=== PATIENT | female | born 1980 | race Hispanic/Latino ===

== ENCOUNTER 2018-08-19 02:18 | Emergency (ER) | payer BC ==
[~2018-08-19] VITALS: Ht 149.9 cm; Wt 68.0 kg
--- OUTSIDE RECORDS SUMMARY | 2018-08-19 02:21 | XMS REPORT | Encounter Summary ---
Author Organization Unknown Address [address] [place] [address] Phone [phone] Reason for Visit Medical Complaint; uti x 1 week Instructions 1. Acute urinary tract infection Bactrim DS 800 mg-160 mg tablet phenazopyridine 200 mg tablet culture, urine urinalysis, dipstick ceftriaxone 500 mg solution for injection Discussion Note: None recorded. Patient educational handouts: No information available. Plan of Care Patient Instructions Increase fluid intake. Take med as prescribed.If started to have yeast infection while on antibiotic, may call clinic for diflucan. Wipe front to back and urinate after sexual intercouse.Wear loose cotton underwear. May take cranberry juice for preventative. If symptoms worsen follow with severe back pain, chills, fever, abdominal pain, seek ER. Reminders Provider Appointments None recorded. Lab Culture, Urine 05/12/2016 [facility] Urinalysis, Dipstick 05/12/2016 [facility] Referral None recorded. Procedures None recorded. Surgeries None recorded. Imaging None recorded. Medications Name Start Date Bactrim DS 800 mg-160 mg tablet Take 1 tablet every 12 hours by oral route as directed for 5 days. ceftriaxone 500 mg solution for injection EpiPen 2-Nadeem 0.3 mg/0.3 mL injection, auto-injector NuvaRing 0.12 mg -0.015 mg/24 hr vaginal U UTD phenazopyridine 200 mg tablet Take 1 tablet 3 times a day by oral route as needed for urinary pain for 2 days. Medications Administered Name Date ceftriaxone 500 mg solution for injection Take by injection route. [id number] Vitals Height Weight BMI Blood Pressure 4 ft 11 in 158 lbs 31.9 118/76 Lab Results Date Name Result Description Value Range Status Urinalysis, Dipstick Color : Mirta Clarity : Cloudy Leukocytes : Large Nitrites : Positive Urobilinogen : Normal Protein : Negative Ph : 6.5 Blood : Large Specific [place] : 1.010 Ketones : Negative Bilirubin : Negative Glucose Negative Allergies Name Reaction Severity Onset NKDA Problems Name Status Onset Date Source Acute Pharyngitis Active Encounter Acute Urinary Tract Infection Active Encounter Cellulitis of Breast Active Encounter Procedures Date Name Performed by Tubal Ligation Information not available Vaccine List Vaccine Type influenza, seasonal, injectable 05/13/2015 influenza, unspecified formulation 04/13/2012 Social History Smoking Status Never Smoker Past Encounters 05/12/2016 Acute Urinary Tract Infection Alicia Pop, GLASS CLEANER: [address] [place] [address], Ph. 04/20/2016 Cellulitis of Breast Gloria Kramer, GLASS CLEANER: [address] [facility], [place] [address], Ph. History of Present Illness Kgqwxx-XUZ-Ieustns Reported By: Patient HPI: Location: urethra. Quality: burning. Severity: worsening. Duration: started 7 days. Onset/Timing: worse. Context: no known exposure to STD, no prior history of STDs, sexually active. Modifying factors OTC medication. Associated Symptoms: no flank pain, no jaundice, no blood in the urine, no pain during urination, no vaginal discharge, no blisters on genitals, no rash on genitals, fever/chills, burning sensation during urination, urgency, urinary frequency Review of Systems Basic Reported By: Patient Constitutional: Constitutional: fever Eyes: Eyes: no eye complaints Fgvt-Lemq-Tqdiy-Throat: Ears: no ear complaints. Nose: no nose/sinus problems. Mouth/Throat: no sore throat, no bleeding gums, no mouth complaints, no teeth problems Cardiovascular: Cardiovascular: no chest pain, no shortness of breath, no known heart murmur Respiratory: Respiratory: no cough, no wheezing, no shortness of breath Gastrointestinal: Gastrointestinal: no abdominal pain, no vomiting / diarrhea Genitourinary: Genitourinary: no discharge, dysuria, urinary urgency Musculoskeletal: Musculoskeletal: no muscle aches, no muscle weakness, no arthralgias/joint pain, no back pain Skin: Skin: no abnormal / changing mole, no jaundice, no rashes Neurologic: Neurologic: no loss of consciousness, no weakness, no numbness, no seizures, no dizziness, no headaches Physical Exam Adult Basic, Adult Female Complete Constitutional: General Appearance: healthy-appearing, well-nourished, well-developed. Level of Distress: NAD. Ambulation: ambulating normally Psychiatric: Mental Status: active and alert. Orientation: to time, to place, to person Eyes: Lids and Conjunctivae: non-injected, no discharge, no pallor. Pupils: PERRLA. Corneas: grossly intact. EOM: EOMI. Lens: clear. Sclerae: non-icteric. Vision: acuity grossly intact Wlf-Kxal-Vmaqu-Throat: Ears: no lesions on external ear, no outer ear tenderness, EACs clear, TMs clear. Hearing: no hearing loss. Nose: no lesions on external nose, nares patent, no septal deviation, nasal passages clear, no sinus tenderness, no nasal discharge. Lips, Teeth, and Gums: no mouth or lip ulcers, no bleeding gums, normal dentition. Oropharynx: moist mucous membranes, no erythema, no exudates, tonsils not enlarged Neck: Neck: supple, trachea midline, no masses, FROM. Lymph Nodes: no cervical LAD, no supraclavicular LAD. Thyroid: no enlargement, non-tender, no nodules Lungs: Respiratory effort: no dyspnea, no tachypnea, no use of accessory muscles, no intercostal retractions. Auscultation: breath sounds normal Cardiovascular: Heart Auscultation: RRR, no murmurs. Neck vessels: no carotid bruits Abdomen: Bowel Sounds: normal. Inspection and Palpation: soft, non-distended, no guarding, no rebound tenderness, no masses, no CVA tenderness, suprapubic tenderness. Liver: non-tender, no hepatomegaly. Spleen: non-tender, no splenomegaly. Hernia: none palpable
--- OUTSIDE RECORDS SUMMARY | 2018-08-19 02:21 | XMS REPORT | Continuity of Care Document ---
Author Author [facility] Interface Address Unknown Phone Unavailable Problems Problem Status Onset Date Classification Date Reported Comments Source Elevated blood pressure 07/31/2018 Diagnosis 07/31/2018 [facility] Body mass index 30+ - obesity 07/31/2018 Diagnosis 07/31/2018 [facility] Expiratory wheezing 07/31/2018 Diagnosis 07/31/2018 [facility] Cough 07/03/2018 Diagnosis 07/31/2018 [facility] Sore throat symptom 07/03/2018 Diagnosis 07/31/2018 [facility] Viral upper respiratory tract infection 07/03/2018 Diagnosis 07/31/2018 [facility] Fever 07/03/2018 Diagnosis 07/31/2018 [facility] Influenza due to Influenza A virus 08/03/2017 Diagnosis 08/04/2017 [facility] Wheezing 08/03/2017 Diagnosis 08/04/2017 [facility] Acute urinary tract infection 05/12/2016 Diagnosis 05/12/2016 [facility] Cellulitis of breast 04/20/2016 Diagnosis 05/12/2016 [facility] Acute Pharyngitis Problem 08/04/2017 [facility] Acute Urinary Tract Infection Problem 08/04/2017 [facility] Cellulitis of Breast Problem 08/04/2017 [facility] Medications Medication Details Route Status Patient Instructions Ordering Provider Order Date Source Brompheniramine Maleate 0.4 MG/ML / Dextromethorphan Hydrobromide 2 MG/ML / Pseudoephedrine Hydrochloride 6 MG/ML Oral Solution [Bromfed DM] Bromfed DM 2 mg-30 mg-10 mg/5 mL syrup Take 10 mL every 6 hours by oral route as needed for 6 days. Active [facility] [id number] 0.3 ML Epinephrine 1 MG/ML Auto-Injector [Epipen] EpiPen 2-Nadeem 0.3 mg/0.3 mL injection, auto-injector FOR EMERGENCY U ONLY Active [facility] 21 DAY Ethinyl Estradiol 0.855358 MG/HR / Etonogestrel 0.005 MG/HR Vaginal Ring [NuvaRing] NuvaRing 0.12 mg -0.015 mg/24 hr vaginal U UTD Active [facility] 200 ACTUAT Albuterol 0.09 MG/ACTUAT Metered Dose Inhaler [ProAir] ProAir HFA 90 mcg/actuation aerosol inhaler Inhale 2 puffs every 4-6 hours by inhalation route as needed. Active [facility] Sulfamethoxazole 800 MG / Trimethoprim 160 MG Oral Tablet [Bactrim] Bactrim DS 800 mg-160 mg tablet Take 1 tablet every 12 hours by oral route as directed for 5 days. Active [facility] Ceftriaxone 500 MG Injection ceftriaxone 500 mg solution for injection Active [facility] 0.3 ML Epinephrine 1 MG/ML Auto-Injector [Epipen] EpiPen 2-Nadeem 0.3 mg/0.3 mL injection, auto-injector Active [facility] Phenazopyridine hydrochloride 200 MG Oral Tablet phenazopyridine 200 mg tablet Take 1 tablet 3 times a day by oral route as needed for urinary pain for 2 days. Active [facility] Mupirocin 0.02 MG/MG Topical Ointment mupirocin 2 % topical ointment APPLY A SMALL AMOUNT TO THE AFFECTED AREA BY TOPICAL ROUTE 3 TIMES PER DAY Active [facility] benzonatate 100 MG Oral Capsule benzonatate 100 mg capsule Take 2 capsules 3 times a day by oral route as needed for 10 days. Active [facility] Medrol (Nadeem) 4 mg tablets in a dose pack Medrol (Nadeem) 4 mg tablets in a dose pack As directed Active [facility] benzonatate 200 MG Oral Capsule benzonatate 200 mg capsule Take 1 capsule 3 times a day by oral route for 7 days. Active [facility] Albuterol 0.09 MG/ACTUAT Metered Dose Inhaler ProAir HFA 90 mcg/actuation aerosol inhaler Inhale 2 puffs every 4-6 hours by inhalation route as needed. Active [facility] Allergies, Adverse Reactions, Alerts Substance Category Reaction Severity Reaction type Status Date Reported Comments Source Immunizations Immunization Date Given Site Status Last Updated Comments Source influenza, seasonal, injectable 05/14/2015 completed [facility] influenza, unspecified formulation 04/14/2012 completed [facility] Results Order Name Results Value Reference Range Date Interpretation Comments Source PEF 469 07/31/2018 [facility] Percent Predicted Value 43 % 07/31/2018 [facility] Influenza A negative 07/30/2018 [facility] Influenza B negative 07/30/2018 [facility] RESULT negative 07/30/2018 [facility] SWAB LOCATION Left and Right tonsillar pillars 07/30/2018 [facility] Influenza A negative 07/30/2018 [facility] Influenza B negative 07/30/2018 [facility] RESULT negative 07/03/2018 [facility] SWAB LOCATION Left and Right tonsillar pillars 07/03/2018 [facility] Influenza A negative 07/03/2018 [facility] Influenza B negative 07/03/2018 [facility] Influenza A positive 08/03/2017 [facility] Influenza B negative 08/03/2017 [facility] Urinalysis macro (dipstick) panel - Urine COLOR : Mirta 05/12/2016 [facility] Urinalysis macro (dipstick) panel - Urine CLARITY : Cloudy 05/12/2016 [facility] Urinalysis macro (dipstick) panel - Urine LEUKOCYTES : Large 05/12/2016 [facility] Urinalysis macro (dipstick) panel - Urine NITRITES : Positive 05/12/2016 [facility] Urinalysis macro (dipstick) panel - Urine UROBILINOGEN : Normal 05/12/2016 [facility] Urinalysis macro (dipstick) panel - Urine PROTEIN : Negative 05/12/2016 [facility] Urinalysis macro (dipstick) panel - Urine pH : 6.5 05/12/2016 [facility] Urinalysis macro (dipstick) panel - Urine BLOOD : Large 05/12/2016 [facility] Urinalysis macro (dipstick) panel - Urine SPECIFIC GRAVITY : 1.010 05/12/2016 [facility] Urinalysis macro (dipstick) panel - Urine KETONES : Negative 05/12/2016 [facility] Urinalysis macro (dipstick) panel - Urine BILIRUBIN : Negative 05/12/2016 [facility] Urinalysis macro (dipstick) panel - Urine GLUCOSE Negative 05/12/2016 [facility] Vital Signs Vital Sign Value Date Comments Source Diastolic (mm Hg) 80 07/30/2018 [facility] Height 59 07/30/2018 [facility] Systolic (mm Hg) 116 07/30/2018 [facility] Weight 157 07/30/2018 [facility] Diastolic (mm Hg) 80 07/03/2018 [facility] Height 59 07/03/2018 [facility] Systolic (mm Hg) 100 07/03/2018 [facility] Weight 157 07/03/2018 [facility] Diastolic (mm Hg) 80 08/03/2017 [facility] Height 59 08/03/2017 [facility] Systolic (mm Hg) 112 08/03/2017 [facility] Weight 157 08/03/2017 [facility] Diastolic (mm Hg) 76 05/12/2016 [facility] Height 59 05/12/2016 [facility] Systolic (mm Hg) 118 05/12/2016 [facility] Weight 158 05/12/2016 [facility] Diastolic (mm Hg) 70 04/20/2016 [facility] Height 59 04/20/2016 [facility] Systolic (mm Hg) 120 04/20/2016 [facility] Weight 158 04/20/2016 [facility] Encounters Location Location Details Encounter Type Encounter Number Reason For Visit Attending Provider ADM Date DC Date Status Source [place] - [facility] - [id number]_[id number] Kramer, ROLLOFF DRIVER: [address] [place] [address], Ph. [id number] Gloria Kramer 04/20/2016 [facility] [place] [facility] - [id number]_[id number] Kramer, ROLLOFF DRIVER: [address] [place] [address], Ph. [id number] Gloria Kramer 04/20/2016 [facility] [place] [facility] - [id number] Kramer, ROLLOFF DRIVER: [address] [place] [address], Ph. [id number] Gloria Kramer 04/20/2016 [facility] [place] [facility] - [id number] Alicia Pop, ROLLOFF DRIVER: [address] [place] [address], Ph. [id number] Alicia Pop 05/12/2016 [facility] [place] - [facility] - [id number] Alicia Pop, ROLLOFF DRIVER: [address], [place] [address], Ph. [id number] Alicia Pop 05/12/2016 [facility] [place] - [facility] - [id number] Luisa Gautamroy, ROLLOFF DRIVER-C: [address], [place] [address], Ph. [id number] Luisa García 08/03/2017 [facility] [place] [facility] - [id number] Cecil Tom, PA-C: [address], [place] [address], Ph. [id number] Cecil Tom 07/03/2018 [facility] [place] [facility] - [id number] Cecil Tom PA-C: [address], [place] [address], Ph. [id number] Cecil Tom 07/03/2018 [facility] [place] [facility] - [id number]_Dyshwibx Jonh Vasquez, ROLLOFF DRIVER-C: [address], [place] [address], Ph. [id number] Jonh Rmsashi 07/30/2018 [facility] Procedures Procedure Code Date Perfomer Comments Source Tubal Ligation [facility]
--- OUTSIDE RECORDS SUMMARY | 2018-08-19 02:21 | XMS REPORT | Encounter Summary ---
Author Organization Unknown Address [address] [place] [address] Phone [phone] Reason for Visit Medical Complaint Instructions 1. Cellulitis of breast cellulitis: care instructions Bactrim DS 800 mg-160 mg tablet mupirocin 2 % topical ointment Discussion Note: None recorded. Plan of Care Patient Instructions Please take tylenol or ibuprofen every 6 hours as needed for pain. Please go to PCP/UC/ER if you have signs that your infection is getting worse, such as: Increased pain, swelling, warmth, or redness: Red streaks leading from the area: Pus draining from the area: fever or rash spreading to the other parts of your body. Watch closely for changes in your health, and be sure to contact your doctor or go toUC/ERif: you are not getting better after 1 day (24 hours). Please read all the side effects of the medications, if you develop any side effects immediately stop the medication and please contact your PCP/UC/ER or [facility] or call 911.Patient verbalizes understanding and agrees to the plan. Reminders Provider Appointments None recorded. Lab None recorded. Referral None recorded. Procedures None recorded. Surgeries None recorded. Imaging None recorded. Medications Name Start Date Bactrim DS 800 mg-160 mg tablet Take 1 tablet every 12 hours by oral route with meals for 10 days. EpiPen 2-Nadeem 0.3 mg/0.3 mL injection, auto-injector mupirocin 2 % topical ointment APPLY A SMALL AMOUNT TO THE AFFECTED AREA BY TOPICAL ROUTE 3 TIMES PER DAY NuvaRing 0.12 mg -0.015 mg/24 hr vaginal Medications Administered None recorded. Vitals Height Weight BMI Blood Pressure 4 ft 11 in 158 lbs 31.9 120/70 Lab Results None recorded. Allergies Name Reaction Severity Onset NKDA Problems Name Status Onset Date Source Acute Pharyngitis Active Encounter Cellulitis of Breast Active Encounter Procedures Date Name Performed by Tubal Ligation Information not available Vaccine List Vaccine Type influenza, seasonal, injectable 05/13/2015 influenza, unspecified formulation 04/13/2012 Social History Smoking Status Never Smoker Past Encounters 04/20/2016 Cellulitis of Breast Gloria Kramer, ENGRAVING PLATE MAKER: [address] [facility], [place] [address], Ph. History of Present Illness Juxc-Hvvkhfx-Ouwus-Skin Lesion-Bite 1 Reported By: Patient HPI: Location: ; right breast-nipple. Quality: painful, tender, red, single, swollen, related to trauma. Severity: improving. Context: no new detergents or skin products, no one else with similar rash, no sting or bite. Aggravating factors: nothing makes it worse. Alleviating factors: ; ibyprofen, sea salt sock and warm compress. Associated Symptoms: no fever, no cold symptoms, no nausea, no vomiting, no diarrhea, no urinary symptoms Notes: Pt reports that she has right nipple piercing few weeks ago, started wth swelling and pain since monday. Review of Systems Basic Reported By: Patient Constitutional: Constitutional: no fever Eyes: Eyes: no eye complaints Hhkh-Ncff-Hxgle-Throat: Ears: no ear complaints. Nose: no nose/sinus problems. Mouth/Throat: no sore throat, no bleeding gums, no mouth complaints, no teeth problems Cardiovascular: Cardiovascular: no chest pain, no shortness of breath, no known heart murmur Respiratory: Respiratory: no cough, no wheezing, no shortness of breath Gastrointestinal: Gastrointestinal: no abdominal pain, no vomiting / diarrhea Genitourinary: Genitourinary: no urinary complaints, no discharge Musculoskeletal: Musculoskeletal: no muscle aches, no muscle weakness, no arthralgias/joint pain, no back pain Skin: Skin: no abnormal / changing mole, no jaundice, no rashes Neurologic: Neurologic: no loss of consciousness, no weakness, no numbness, no seizures, no dizziness, no headaches Physical Exam Adult Basic, Adult Female Complete Reported By: Patient Constitutional: General Appearance: healthy-appearing, well-nourished, well-developed. Level of Distress: NAD. Ambulation: ambulating normally Psychiatric: Mental Status: active and alert. Orientation: to time, to place, to person Neck: Neck: supple. Lymph Nodes: no cervical LAD, no axillary LAD Lungs: Respiratory effort: no dyspnea, no tachypnea. Auscultation: breath sounds normal Cardiovascular: Heart Auscultation: RRR, no murmurs Musculoskeletal:: Motor Strength and Tone: normal motor strength, normal tone. Extremities: no cyanosis, no edema Neurologic: Gait and Station: normal gait Skin: Inspection and palpation: no lesions, no ulcer, no abnormal nevi, no induration, no nodules, good turgor, no jaundice, rash Breast: Breast: ; redness, swelling and tenderness on right nipple around the piercing and areola
--- OUTSIDE RECORDS SUMMARY | 2018-08-19 02:21 | XMS REPORT | Encounter Summary ---
Author Organization Unknown Address [address] [place] [address] Phone [phone] Reason for Visit Medical Complaint Instructions 1. Influenza due to Influenza A virus Bromfed DM 2 mg-30 mg-10 mg/5 mL syrup rapid flu (A+B) 2. Wheezing wheezing or bronchoconstriction: care instructions ProAir HFA 90 mcg/actuation aerosol inhaler Discussion Note Pt is in NAD; Verbalizes understanding of all instructions with no questions at this time. Plan of Care Patient Instructions Start ProAir Inhalers 2 puffs every 4-6 hrs as needed for shortness of breath/wheezing. Take fluticasone as needed for congestion. Angela one spray in each nostril twice a day. Take a warm, steamy shower, blow your nose thereafter, and spray in each nostril. Tilt your head up for about 10 seconds and breath through your mouth. Do not sniff or snort the medication in or else the medication will go to your throat and not be absorbed appropriately. Alternate with Ibuprofen and acetaminophen every 4hrs as needed for pain/fever/headache. Take Bromfed DM for cough as directed. Proper hydration and rest. Return to work/school if free of fever for 24-hrs Do not share any utensils/cups, no kissing, recommend hand washing after coughing/sneezing/blowing nose and cover face when you do so. Take medications as prescribed and follow up with a PCP within 2-3 if symptoms worsen as discussed. In case of emergency call 911 or go to nearest ER. Reminders Provider Appointments None recorded. Lab Rapid Flu (A+B) 08/03/2017 [facility] Referral None recorded. Procedures None recorded. Surgeries None recorded. Imaging None recorded. Medications Name Start Date Bromfed DM 2 mg-30 mg-10 mg/5 mL syrup Take 10 mL every 6 hours by oral route as needed for 6 days. EpiPen 2-Nadeem 0.3 mg/0.3 mL injection, auto-injector FOR EMERGENCY U ONLY NuvaRing 0.12 mg -0.015 mg/24 hr vaginal U UTD ProAir HFA 90 mcg/actuation aerosol inhaler Inhale 2 puffs every 4-6 hours by inhalation route as needed. Medications Administered None recorded. Vitals Height Weight BMI Blood Pressure 4 ft 11 in 157 lbs 31.7 kg/m2 112/80 mm[Hg] Lab Results Date Name Specimen Result Interpretation Description Value Range Status Address Rapid Flu (A+B) Influenza a positive [facility]: [facility] Influenza B negative [facility]: [facility] Allergies Code Code System Name Reaction Severity Status Onset NKDA Problems Name Status Onset Date Source Acute Pharyngitis Active Encounter Acute Urinary Tract Infection Active Encounter Cellulitis of Breast Active Encounter Procedures Date Name Performed by Tubal Ligation Information not available Vaccine List Vaccine Type influenza, seasonal, injectable 05/14/2015 influenza, unspecified formulation 04/14/2012 Social History Smoking Status Never Smoker Past Encounters 08/03/2017 Influenza Due to Influenza a Virus; Wheezing Luisa García, [facility]-C: [address] [place] [address], Ph. History of Present Illness Ieltadq-Bgydt-Ned Reported By: Patient HPI: Quality: symptoms worse during the day. Duration: 7 days. Context: no ill contacts, no tick/insect bites, no recent travel, no new medications. Associated Symptoms: no fever/chills, no muscle aches, no rash, no lethargy, headache, cough, nasal passage blockage (stuffiness), nasal discharge; sinus pressure,chest congestion, mild intermittent wheezing at night. Modifying Factors nothing gives relief Review of Systems:ROS as noted in the HPI Review of Systems Basic Reported By: Patient Physical Exam Adult Basic, Adult Female Complete Reported By: Patient Constitutional: General Appearance: healthy-appearing, well-nourished, well-developed. Level of Distress: NAD. Ambulation: ambulating normally Psychiatric: Mental Status: active and alert. Orientation: to time, to place, to person Avo-Zgjl-Bybvl-Throat: Ears: no lesions on external ear, no outer ear tenderness, EACs clear, TMs clear. Hearing: no hearing loss. Nose: no lesions on external nose, nares patent, no septal deviation, nasal passages clear, no sinus tenderness, nasal discharge--rhinorrhea, post nasal drip. Lips, Teeth, and Gums: no mouth or lip ulcers, no bleeding gums, normal dentition. Oropharynx: moist mucous membranes, no erythema, no exudates, tonsils not enlarged Neck: Lymph Nodes: no cervical LAD Lungs: Respiratory effort: no dyspnea, no tachypnea, no use of accessory muscles, no intercostal retractions. Auscultation: breath sounds normal Cardiovascular: Heart Auscultation: RRR, no murmurs Neurologic: Gait and Station: normal gait, normal station
--- OUTSIDE RECORDS SUMMARY | 2018-08-19 02:21 | XMS REPORT | Encounter Summary ---
Author Organization Unknown Address [address] [place] [address] Phone [phone] Reason for Visit Medical Complaint Instructions 1. Expiratory wheezing peak flow albuterol sulfate 2.5 mg/3 mL (0.083 %) solution for nebulization ProAir HFA 90 mcg/actuation aerosol inhaler 2. Cough rapid flu (A+B) cough: care instructions benzonatate 200 mg capsule 3. Body mass index 30+ - obesity body mass index: care instructions learning about healthy weight 4. Elevated blood pressure elevated blood pressure: care instructions dash diet: care instructions blood pressure monitoring education Discussion Note: None recorded. Plan of Care Patient Instructions Your Care Instructions Wheezing is a whistling noise made during breathing. It occurs when the small airways, or bronchial tubes, that lead to your lungs swell or contract (spasm) and become narrow. This narrowing is called bronchoconstriction. When your airways constrict, it is hard for air to pass through and this makes it hard for you to breathe. Wheezing and bronchoconstriction can be caused by many problems, including: An infection such as the flu or a cold. Allergies such as hay fever. Diseases such as asthma or chronic obstructive pulmonary disease. Smoking. Treatment for your wheezing depends on what is causing the problem. Your wheezing may get better without treatment. But you may need to pay attention to things that cause your wheezing and avoid them. Or you may need medicine to help treat the wheezing and to reduce the swelling or to relieve spasms in your lungs. Follow-up care is a clemons part of your treatment and safety. Be sure to make and go to all appointments, and call your doctor if you are having problems. It is also a good idea to know your test results and keep a list of the medicines you take. How can you care for yourself at home? Take your medicine exactly as prescribed. Call your doctor if you think you are having a problem with your medicine. You will get more details on the specific medicine your doctor prescribes. If your doctor prescribed antibiotics, take them as directed. Do not stop taking them just because you feel better. You need to take the full course of antibiotics. Breathe moist air from a humidifier, hot shower, or sink filled with hot water. This may help ease your symptoms and make it easier for you to breathe. If you have congestion in your nose and throat, drinking plenty of fluids, especially hot fluids, may help relieve your symptoms. If you have kidney, heart, or liver disease and have to limit fluids, talk with your doctor before you increase the amount of fluids you drink. If you have mucus in your airways, it may help to breathe deeply and cough. Do not smoke or allow others to smoke around you. Smoking can make your wheezing worse. If you need help quitting, talk to your doctor about stop-smoking programs and medicines. These can increase your chances of quitting for good. Avoid things that may cause your wheezing. These may include colds, smoke, air pollution, dust, pollen, pets, cockroaches, stress, and cold air. When should you call for help? Call 911 anytime you think you may need emergency care. For example, call if: You have severe trouble breathing. You passed out (lost consciousness). Call your doctor now or seek immediate medical care if: You cough up yellow, dark brown, or bloody mucus (sputum). You have new or worse shortness of breath. Your wheezing is not getting better or it gets worse after you start taking your medicine. Watch closely for changes in your health, and be sure to contact your doctor if: You do not get better as expected. Reminders Provider Appointments None recorded. Lab Rapid Flu (A+B) 07/30/2018 [facility] Referral None recorded. Procedures None recorded. Surgeries None recorded. Imaging None recorded. Medications Name Start Date benzonatate 200 mg capsule Take 1 capsule 3 times a day by oral route for 7 days. ProAir HFA 90 mcg/actuation aerosol inhaler Inhale 2 puffs every 4-6 hours by inhalation route as needed. Medications Administered None recorded. Vitals Height Weight BMI Blood Pressure 4 ft 11 in 157 lbs 31.7 kg/m2 116/80 mm[Hg] Lab Results Date Name Specimen Result Interpretation Description Value Range Status Address 07/30/2018 Peak Flow Pef 469 [facility]: [address] [place] [address] Percent Predicted Value 43% [facility]: [facility] Rapid Flu (A+B) Influenza a negative [facility]: [facility] Influenza B negative [facility]: [facility] Rapid Strep Group a, Throat Result negative [facility]: [facility] Swab Location Left and Right tonsillar pillars [facility]: [facility] Rapid Flu (A+B) Influenza a negative [facility]: [facility] Influenza B negative [facility]: [facility] Allergies Code Code System Name Reaction Severity Status Onset NKDA Problems None recorded. Procedures Date Name Performed by Tubal Ligation Information not available Vaccine List Vaccine Type influenza, seasonal, injectable 05/14/2015 influenza, unspecified formulation 04/14/2012 Social History Smoking Status Never Smoker Past Encounters 07/30/2018 Expiratory Wheezing; Cough; Body Mass Index 30+ - Obesity; Elevated Blood Pressure CAMILO Jones: [address] [place] [address], Ph. 07/03/2018 Fever; Viral Upper Respiratory Tract Infection; Sore Throat Symptom; Cough Cecil Tom PA-C: [address] [place] [address], Ph. History of Present Illness Cough Reported By: Patient HPI: Location: chest. Quality: dry cough, wheezy cough. Duration: 5 days. Severity: moderate. Onset/Timing: gradual. Context: no sick contacts, no foreign travel, non-smoker. Associated Symptoms: no sputum production, no shortness of breath, no wheezing, no sweats, no significant weight gain, no significant weight loss, no sore throat, no vomiting, no diarrhea, no rash, no nausea, no fever/chills, no muscle aches, no headache, morning cough Review of Systems:ROS as noted in the HPI Review of Systems Basic Reported By: Patient Physical Exam Adult Basic, Adult Female Complete Reported By: Patient Constitutional: General Appearance: obese. Level of Distress: NAD. Ambulation: ambulating normally Psychiatric: Mental Status: active and alert. Orientation: to time, to place, to person Lungs: Respiratory effort: no dyspnea, no tachypnea, no use of accessory muscles, no intercostal retractions. Auscultation: expiratory wheezing Cardiovascular: Heart Auscultation: RRR, no murmurs
--- OUTSIDE RECORDS SUMMARY | 2018-08-19 02:21 | XMS REPORT | Encounter Summary ---
Author Organization Unknown Address [address] [place] [address] Phone [phone] Reason for Visit Medical Complaint; uti x [...] solution for injection Take by injection route. [id number] Vitals Height Weight BMI Blood Pressure 4 ft 11 in 158 lbs 31.9 118/76 Lab Results Date Name Result Description Value Range Status Urinalysis, Dipstick Color : Mirta Clarity : Cloudy Leukocytes : Large Nitrites : Positive Urobilinogen : Normal Protein : Negative Ph : 6.5 Blood : Large Specific [place] : 1.010 Ketones : Negative Bilirubin : [...] 05/12/2016 Acute Urinary Tract Infection Alicia Pop, [employer]: [address] [place] [address], Ph. 04/20/2016 Cellulitis of Breast Gloria Kramer, [employer]: [address] [facility], [place] [address], Ph. History of Present Illness [id number] Reported By: Patient HPI: Location: urethra. Quality: [...] no fever Eyes: Eyes: no eye complaints Fspl-Slur-Hfwdb-Throat: Ears: no ear complaints. Nose: no nose/sinus [...] clear. Sclerae: non-icteric. Vision: acuity grossly intact Dgk-Tgyi-Bjhty-Throat: Ears: no lesions on external ear, no [...]
--- OUTSIDE RECORDS SUMMARY | 2018-08-19 02:21 | XMS REPORT | Encounter Summary ---
Author Organization Unknown Address [address] [place] [address] Phone [phone] Reason for Visit Medical Complaint Instructions 1. Fever rapid flu (A+B) 2. Viral upper respiratory tract infection Medrol (Nadeem) 4 mg tablets in a dose pack 3. Sore throat symptom sore throat: care instructions rapid strep group A, throat 4. Cough benzonatate 100 mg capsule Discussion Note explained to patient regarding viral vs bacterial infection. Encouraged adequate hydration and fluids. Discussed hand hygiene and CDC guidelines for viral infections. If new, worsening or persistance of symptoms follow up with PCP. If SOB, wheezing, fever, difficulty swallowing or abdominal pain go to ED. Pt verbalizes understanding and agrees with plan of care. Plan of Care Reminders Provider Appointments None recorded. Lab Rapid Flu (A+B) 07/03/2018 [facility] Rapid Strep Group a, Throat 07/03/2018 [facility] Referral None recorded. Procedures None recorded. Surgeries None recorded. Imaging None recorded. Medications Name Start Date benzonatate 100 mg capsule Take 2 capsules 3 times a day by oral route as needed for 10 days. Medrol (Nadeem) 4 mg tablets in a dose pack As directed Medications Administered None recorded. Vitals Height Weight BMI Blood Pressure 4 ft 11 in 157 lbs 31.7 kg/m2 100/80 mm[Hg] Lab Results Date Name Specimen Result Interpretation Description Value Range Status Address Rapid Strep Group a, Throat Result negative [facility]: [address] [place] [address] Swab Location Left and Right tonsillar pillars [facility]: [address] [place] [address] Rapid Flu (A+B) Influenza a negative [facility]: [address] [place] [address] Influenza B negative [facility]: [address] [place] [address] Allergies Code Code System Name Reaction Severity Status Onset NKDA Problems None recorded. Procedures Date Name Performed by Tubal Ligation Information not available Vaccine List Vaccine Type influenza, seasonal, injectable 05/14/2015 influenza, unspecified formulation 04/14/2012 Social History Smoking Status Never Smoker Past Encounters 07/03/2018 Fever; Viral Upper Respiratory Tract Infection; Sore Throat Symptom; Cough Cecil Tom PA-C: [address] [place] [address], Ph. History of Present Illness [id number] Reported By: Patient HPI: Location: head/sinuses. Quality: productive cough, colored phlegm, nasal/sinus congestion. Duration: 3days. Severity: mild. Onset/Timing: sudden. Context: no sick contacts, no foreign travel, non-smoker. Modifying factors: OTC medication. Associated Symptoms: no shortness of breath, no wheezing, no change in number of pillows needed to sleep at night, no sweats, no significant weight gain, no significant weight loss, no morning cough, no sore throat, no vomiting, no diarrhea, no rash, no fever, no muscle aches, yellow-green, thick sputum, fever, headache; decreased appetite Review of Systems Basic Reported By: Patient Constitutional: Constitutional: no fever Eyes: Eyes: no eye complaints Gzne-Avua-Tqten-Throat: Ears: no ear complaints; pressure AU. Nose: nose/sinus problems. Mouth/Throat: no bleeding gums, no mouth complaints, no teeth problems, sore throat Cardiovascular: Cardiovascular: no chest pain, no shortness of breath, no known heart murmur Respiratory: Respiratory: no wheezing, no shortness of breath, cough Gastrointestinal: Gastrointestinal: no abdominal pain, no vomiting / diarrhea Genitourinary: Genitourinary: no urinary complaints, no discharge Musculoskeletal: Musculoskeletal: no muscle weakness, no arthralgias/joint pain, no back pain, muscle aches Skin: Skin: no abnormal / changing mole, no jaundice, no rashes Neurologic: Neurologic: no loss of consciousness, no weakness, no numbness, no seizures, no dizziness, no headaches, headache Physical Exam Adult Basic, Adult Female Complete Reported By: Patient Constitutional: General Appearance: healthy-appearing, well-nourished, well-developed. Level of Distress: NAD. Ambulation: ambulating normally Psychiatric: Mental Status: active and alert. Orientation: to time, to place, to person Eyes: Lids and Conjunctivae: non-injected, no discharge, no pallor. Pupils: PERRLA. EOM: EOMI. Sclerae: non-icteric. Vision: acuity grossly intact Euu-Kzha-Dkufy-Throat: Ears: no lesions on external ear, no outer ear tenderness, EACs clear, TMs clear, middle ear fluid. Hearing: no hearing loss. Nose: no lesions on external nose, nares patent, no septal deviation, nasal passages clear, sinus tenderness, nasal discharge--rhinorrhea, post nasal drip. Lips, Teeth, and Gums: no mouth or lip ulcers, no bleeding gums, normal dentition. Oropharynx: moist mucous membranes, no erythema, no exudates, tonsils not enlarged; cobblestoning Neck: Neck: supple, trachea midline, no masses, FROM. Lymph Nodes: no cervical LAD, no supraclavicular LAD Lungs: Respiratory effort: no dyspnea, no tachypnea, no use of accessory muscles, no intercostal retractions. Auscultation: breath sounds normal Cardiovascular: Heart Auscultation: RRR, no murmurs
[2018-08-19] MEDS ORDERED: MEDROL4 MG PO (03:02)
== END 2018-08-19 03:10 | disposition home or self-care (01) ==
LOC: FSED 02:18
DX: B34.9 Viral infection, unspecified (principal); J30.2 Other seasonal allergic rhinitis
CPT/HCPCS: 99282